=== PATIENT | male | born 1970 | race Caucasian/White ===

== ENCOUNTER 2017-02-17 23:16 | Emergency (ER) | payer OTHER ==
[~2017-02-17] VITALS: Ht 162.6 cm; Wt 81.6 kg
[2017-02-17 23:16] VITALS: BP_SYST 145
[2017-02-18 00:07] VITALS: BP_SYST 145
== END 2017-02-18 00:14 ==
LOC: SED 23:16
DX: Z02.89 Encounter for other administrative examinations (principal)
CPT/HCPCS: 99283